=== PATIENT | male | born 1995 | race Caucasian/White ===

== ENCOUNTER 2023-01-03 18:09 | Emergency (ER) | payer OTHER, SELFPAY ==
[2023-01-03 18:18] VITALS: BP 177/105; PULSE 108; RESP 20; TEMP 36.9; O2SAT 100
--- NOTE | 2023-01-03 18:58 | ED.ANIMALBIT ---
HPI - Animal Bite General Chief Complaint: Animal Bite Stated Complaint: Dog Bite Left Leg Time Seen by Provider: 01/03/23 18:58 Source: patient Mode of arrival: ambulatory Limitations: no limitations History of Present Illness HPI narrative: 27-year-old male presents with dog bite to left calf. Patient bit by dog last night while breaking up a fight between his dog and a neighbor's dog. Patient reports that dog that bit him is up-to-date on vaccines. Patient had tetanus within the last 5 years. All systems reviewed and negative except as noted above. Related Data Allergies Allergy/AdvReac Type Severity Reaction Status Date / Time Penicillins Allergy Unknown Verified 01/03/23 18:21 Review of Systems Review of Systems: CONSTITUTIONAL: Denies fever, chills, or sweats. EYES: Denies visual changes, redness, or discharge. ENT: Denies rhinorrhea, congestion, sore throat, or otalgia. CARDIOVASCULAR: Denies chest pain, palpitations, or edema. RESPIRATORY: Denies cough or dyspnea. GASTROINTESTINAL: Denies abdominal pain, nausea, vomiting, or diarrhea. GENITOURINARY: Denies dysuria or hematuria. SKIN: Denies rash or itching. Reports dog bite to left calf. MUSCULOSKELETAL: Denies back pain, joint pain, or myalgia. NEUROLOGIC: Denies headache, numbness, or weakness. PSYCHIATRIC: Denies anxiety or depression. All other systems reviewed are negative, except as documented in HPI. PMFSH Comments At time of signature, agree with nursing past medical, surgical, social and family history. There is no relevant family history pertinent to the presenting complaint. Exam Narrative: GENERAL: This is a well-nourished, well-developed patient, in no apparent distress. HEAD: normocephalic, atraumatic. EYES: PERRL. Sclera clear/white. Vision is grossly intact. EARS: External ears normal NOSE: External nose normal NECK: Neck supple, non-tender without lymphadenopathy, masses or thyromegaly. CARDIOVASCULAR: Regular rate and rhythm without murmurs, gallops, or rubs. RESPIRATORY: Clear to auscultation. Breath sounds equal bilaterally. No wheezes, rales, or rhonchi. SKIN: warm, Dry, with no suspicious lesions or rash, good texture and turgor. Dog bite to posterior aspect left leg. Approximately 8 punctures from dog's teeth. Bleeding controlled. No signs of infection. NEURO: awake, alert, and oriented to person, place and time. There were no obvious focal neurologic abnormalities. EXTREMITIES: No joint tenderness, effusion, or edema noted. Course Course Level of Care: Express Care Visit Vital Signs Vital signs: Vital Signs Temperature 36.9 C 01/03/23 18:18 Pulse Rate 108 H 01/03/23 18:18 Respiratory Rate 20 01/03/23 18:18 Blood Pressure 177/105 H 01/03/23 18:18 Pulse Oximetry 100 01/03/23 18:18 Oxygen Delivery Room Air 01/03/23 18:18 Temperature 36.9 C 01/03/23 18:18 Pulse Rate 108 H 01/03/23 18:18 Respiratory Rate 20 01/03/23 18:18 Blood Pressure 177/105 H 01/03/23 18:18 Pulse Oximetry 100 01/03/23 18:18 Oxygen Delivery Room Air 01/03/23 18:18 Reviewed. BP elevated. Patient has appointment with primary care physician next week to start medications. MDM - Animal Bite MDM Narrative Medical decision making narrative: Patient is aware of diagnosis, understands and agrees to treatment plan. Anticipatory guidance given. Patient agrees to follow-up as directed and is aware of reasons to seek care at the emergency department. Portions of this record may have been created with voice recognition software Discharge Plan Discharge Clinical Impression: Elevated blood pressure reading Dog bite of left calf Qualifiers: Encounter type: initial encounter Qualified Code(s): S81.852A - Open bite, left lower leg, initial encounter Patient Disposition: Home, Self-Care Condition: Stable Instructions: Antibiotic Form, Animal Bite (ED) Additional Instructions: Take antibiotics as
== END 2023-01-03 19:16 | disposition home or self-care (01) ==
PROVIDERS: Emergency Provider Nurse Practitioner Family
DX: S81.832A Puncture wound without foreign body, left lower leg, initial encounter (principal); W54.0XXA Bitten by dog, initial encounter; R03.0 Elevated blood-pressure reading, without diagnosis of hypertension
CPT/HCPCS: 99213; G0463